=== PATIENT | female | born 1980 | race Two or more races ===

== ENCOUNTER 2019-10-28 22:21 | Emergency (ER) | payer OTHER ==
[~2019-10-28] VITALS: Ht 149.9 cm; Wt 57.7 kg
[~2019-10-28 22:21] MED LIST: DICY10CA3 PO; FAMO20TA7 PO; SIME125T PO
[2019-10-28 22:23] VITALS: BP 122/66
--- NOTE | 2019-10-28 22:36 | NUR ---
URINE SAMPLE SENT
[2019-10-28 22:56] LABS: CULTURE INDICATED? YES; MICROSCOPIC INDICATED
--- NOTE | 2019-10-28 23:14 | NUR ---
PT TO RESTROOM AT THIS TIME STEADY GAIT NADN
[2019-10-28 23:22] LABS: HCG UR SG 1.005 (1.003-1.030)
--- NOTE | 2019-10-28 23:26 | NUR ---
MD AT BEDSIDE TO ASSESS PT AND DISCUSS POC
[2019-10-28] MEDS ORDERED: PHENAZOPYRIDINE 200 MG TABLET ONE (23:35)
[2019-10-28] MEDS ORDERED: ONDANSETRON ODT 4 MG ONE (23:36)
[2019-10-28] MEDS ORDERED: HYDROcodone/APAP 5/325 TABLET ONE (23:36)
[2019-10-28] MEDS ORDERED: CIPROFLOXACIN 500 MG TABLET ONE (23:36)
--- NOTE | 2019-10-28 23:50 | NUR ---
PT MEDICATED PER MAR
--- NOTE | 2019-10-28 23:57 | NUR ---
Patient/Caregiver given discharge instructions and they have confirmed that they understand the instructions. Patient ambulatory with steady gait.
[2019-10-29] MEDS ORDERED: ONDANSETRON ODT 4 MG PO ONE
[2019-10-29] MEDS ORDERED: CIPROFLOXACIN 500 MG TABLET PO ONE
[2019-10-29] MEDS ORDERED: HYDROcodone/APAP 5/325 TABLET PO ONE
[2019-10-29] MEDS ORDERED: PHENAZOPYRIDINE 200 MG TABLET PO ONE
== END 2019-10-28 23:57 | disposition home or self-care (01) ==
LOC: ED 23:23
DX: N30.01 Acute cystitis with hematuria (principal)
CPT/HCPCS: 81001; 81025; 87077; 87086; 99284; Q0162; 87186